=== PATIENT | female | born 1990 | race American Indian/Alaskan Native ===

== ENCOUNTER 2016-10-29 10:08 | Day surgery (SDC) | payer BC ==
--- NOTE | 2016-10-28 12:59 | History and Physical Report ---
History of Present Illness Date of examination: 10/26/16 Date of admission: 10/29/16 Chief complaint: irregular bleeding History of present illness: History of Present Illness: Pt with long h/o irregular bleeding that has improved since being on the depo. Previous sonogram showed a collection of fluid in the uterus. After several months on the depo the sono was repeated and collection still present. Previous EMBX had benign findings. I d/w pt repeating the embx, observation, vs hysteroscopy with D&C. She desires the hysteroscopy with D&C. All risk/benefits/ alternatives were d/w pt and questions were addressed and answered. pt was given plenty of time to answere all q Vital Signs: Patient Profile: 26 Years Old Female Height: 66 inches (167.64 cm) Weight: 114 pounds BMI: 18.40 BP sittin / 66 (left arm) Current Method of Contraception: Depo-Provera Past History : 1 Term Births: 1 Premature Births: 0 Living Children: 1 Para: 1 Mult. Births: 0 Prev : 0 Prev. attempt? 0 Aborta: 0 Elect. Ab: 0 Spont. Ab: 0 Ectopics: 0 MEDICAL ASSOCIATE History Uterine Surgery (not C/S): negative Operations: Knee Arthroscopy Hospitalizations: negative Anesthesia Complications: negative Abnormal PAP: negative Uterine Anomaly: negative CHARANJIT Exposure: negative Infertility: negative Infection History HIV Risk Eval: no Personal hx. of genital herpes: no Hx of STD: chlamydia Active Medications (reviewed today): DEPO-PROVERA 150 MG/ML IM SUSP (MEDROXYPROGESTERONE ACETATE) 1 inj x every 12 weeks Current Allergies (reviewed today): No known allergies Past Medical History: Reviewed history from 07/09/2008 and no changes required: Negative Past Medical History Past Surgical History: Reviewed history from 07/07/2011 and no changes required: Knee Arthroscopy Family History Summary: Reviewed history Last on 01/22/2016 and no changes required:10/28/2016 General Comments - FH: Family History Breast Cancer- Paternal aunt Family History of Hypertension- MGM No Family History of Breast Cancer No Family History of Colon Cancer No Family History of Diabetes No Family History of Ovarvian Cancer No Family History of DVT/PE on OCP Social History: Reviewed history from 07/09/2008 and no changes required: Patient is single Past History Past Medical History: no pertinent history Past Surgical History: no surgical history MEDICAL ASSOCIATE History: abnormal PAP smear Social history: no significant social history, single Medications and Allergies Allergies Allergy/AdvReac Type Severity Reaction Status Date / Time No Known Allergies Allergy Unverified 10/23/16 15:24 Home Medications Medication Instructions Recorded Confirmed Last Taken Type No Known Home Medications [No 10/23/16 10/23/16 Unknown History Reported Home Medications] Active Meds: Active Medications Cefazolin Sodium (Ancef/Sterile Water 2 Gm/20 Ml) 2 gm in 20 mls @ 80 mls/hr IV PREOP NR PRN Reason: Protocol Stop: 10/29/16 23:59 Review of Systems All systems: negative - Physical Exam Cardiovascular: Normal S1, Normal S2 Lungs: Positive: Clear to auscultation, Normal air movement Abdomen: Positive: normal appearance, soft, normal bowel sounds. Negative: distention, tenderness, guarding Genitourinary (Female): Positive: normal external genitalia, normal perenium Extremities: Positive: normal. Negative: tenderness, edema Results All other labs normal. Assessment and Plan - Patient Problems (1) Irregular menstrual bleeding Status: Acute Plan to address problem: -fluid in the endometrium -hysteroscopy with D&C -consents signed and placed on the chart.
[~2016-10-29 10:08] MED LIST: ANCEF/STERILE WATER 2 GM/20 ML 2 GM/20 ML SYRINGE IV NR
[2016-10-29] MEDS ORDERED: TORADOL IV PRN (11:28)
[2016-10-29] MEDS ORDERED: ZOFRAN IV PRN (11:28)
[2016-10-29] MEDS ORDERED: DILAUDID IV PRN (11:28)
--- NOTE | 2016-10-29 11:29 | Anesthesia Day of Surgery ---
Anesthesia Day of Surgery - Day of Surgery Patient Examined: Yes Patient H&P Reviewed: Yes Patient is NPO: Yes
--- NOTE | 2016-10-29 11:30 | Anesthesia Consultation ---
Anesthesia Consult and Med Hx Date of service: 10/29/16 - Airway Anesthetic Teeth Evaluation: Good ROM Head & Neck: Adequate Mental/Hyoid Distance: Adequate Mallampati Class: Class II Intubation Access Assessment: Probably Good - Pulmonary Exam CTA: Yes (blbs clear) - Cardiac Exam Cardiac Exam: RRR - Pre-Operative Health Status ASA Pre-Surgery Classification: ASA1 Proposed Anesthetic Plan: General - Central Nervous System Hx Psychiatric Problems: No - Other Systems Hx Cancer: No
[2016-10-29] MEDS ORDERED: PEPCID PO NR (12:00)
[2016-10-29] MEDS ORDERED: NACL 0.9% 1000 ML 1,000 ML IV SCH ×2 (12:00)
[2016-10-29] MEDS ORDERED: VERSED IV NR (12:00)
[2016-10-29] MEDS ORDERED: DIPRIVAN 10 MG/ML IV ONE (12:54)
[2016-10-29] MEDS ORDERED: XYLOCAINE MPF 2% ONE (12:56)
[2016-10-29] MEDS ORDERED: DILAUDID ONE (12:56)
[2016-10-29] MEDS ORDERED: SILVER NITRATE TP ONE (13:05)
[2016-10-29] MEDS ORDERED: NACL 0.9% IR ONE (13:29)
[2016-10-29] MEDS ORDERED: TORADOL ONE (13:53)
[2016-10-29] MEDS ORDERED: ZOFRAN ONE (13:53)
--- NOTE | 2016-10-29 14:02 | Short Stay Summary ---
Short Stay Documentation Date of service: 10/29/16 - History H&P: dictated Past Medical History: No medical history Past Surgical History: , Other (knee sx) Social history: no significant social history, single - Allergies and Medications Current Medications: Allergies No Known Allergies Allergy (Unverified 10/23/16 15:24) Home Medications Medication Instructions Recorded Confirmed Last Taken Type Ibuprofen [Motrin 800 MG tab] 800 mg PO Q8HR PRN #30 tablet 10/29/16 Unknown Rx oxyCODONE /ACETAMINOPHEN [Percocet 1 tab PO Q4HR #30 tab 10/29/16 Unknown Rx 5/325] Active Medications Famotidine (Pepcid) 20 mg PO PREOP NR Stop: 10/29/16 23:59 Last Admin: 10/29/16 11:43 Dose: 20 mg Fentanyl (Sublimaze) 50 mcg IV Q5MIN PRN PRN Reason: Pain , Severe (7-10) Stop: 11/01/16 11:29 Hydromorphone HCl (Dilaudid) 0.25 mg IV Q10MIN PRN PRN Reason: Pain, Moderate (4-6) Stop: 11/01/16 11:29 Cefazolin Sodium (Ancef/Sterile Water 2 Gm/20 Ml) 2 gm in 20 mls @ 80 mls/hr IV PREOP NR PRN Reason: Protocol Stop: 10/29/16 23:59 Sodium Chloride (Nacl 0.9% 1000 Ml) 1,000 mls @ 100 mls/hr IV DIRECT ANA Last Admin: 10/29/16 11:43 Dose: 100 mls/hr Sodium Chloride (Nacl 0.9% 1000 Ml) 1,000 mls @ 100 mls/hr IV DIRECT ANA Midazolam HCl (Versed) 2 mg IV PREOP NR Stop: 10/29/16 23:59 - Physical exam General appearance: no acute distress Lungs: Clear to auscultation Breasts: deferred Heart: Regular rate Gastrointestinal: normal, normoactive bowel sounds Extremities: no ischemia, No edema, Full ROM - Brief post op/procedure progress note Date of procedure: 10/29/16 Pre-op diagnosis: irregular bleeding Post-op diagnosis: same Procedure: hysteroscopy with D&C Anesthesia: GETA Findings: slightly thickend endometrium of the of the left fundus. Both ostia seen no active bleeding. nulliparous cx. uterus sound to 5cm Surgeon: EMILY HARDIN Estimated blood loss: minimal Pathology: list (endometrial sample) Specimen disposition: to lab Condition: stable - Hospital course Hospital course: Patient was admitted for the above-stated procedure. Patient will recover in the PACU and will be discharged home once she has met discharge criteria - Disposition Condition at discharge: Good Disposition: DISCHARGED TO HOME OR SELFCARE - Discharge Diagnoses (1) Irregular menstrual bleeding Status: Acute Short Stay Discharge Plan Activity: no restrictions Weight Bearing Status: Weight Bear as Tolerated Diet: regular Follow up with: SVITLANA COMBS MD [Primary Care Provider] - 7 Days EMILY HARDIN MD [Staff Physician] - 7 Days Prescriptions: Ibuprofen [Motrin 800 MG tab] 800 mg PO Q8HR PRN #30 tablet PRN Reason: Pain oxyCODONE /ACETAMINOPHEN [Percocet 5/325] 1 tab PO Q4HR #30 tab
--- NOTE | 2016-10-29 14:07 | Operative Report ---
Operative Report Operative Report: Date of procedure: 10/29/2016 Pre-operative diagnosis: Irregular bleeding Persistent fluid in the endometrial cavity Post-operative diagnosis: Same Procedure name(s): Hysteroscopy Dilatation and curettage Surgeon: Dr. Narayanan Transmission Worker: Certified surgical scrub anesthesiologist assistant Anesthesia: Gen. endotracheal anesthesia EBL: Minimal Urine output: 200 mL of clear urine out at the beginning of the procedure via straight catheterization Fluids: 400 mL Findings: Normal cervix. Uterus sounded to approximately 5 cm. Slightly thickened endometrium in the left fundal region. Otherwise normal hysteroscopy. Both ostia clearly visualized. No active bleeding. Indications: Patient presented with irregular bleeding and lower pelvic pain. Sonographic findings were consistent with fluid within the endometrial cavity. Patient underwent endometrial biopsy without resolution of fluid. Decision was made at this time to proceed with hysteroscopy D&C. Procedure: Patient was taken to the operating room where she was placed under general endotracheal anesthesia. She was then prepped and draped in sterile fashion. She was placed in dorsal lithotomy position with legs in Kwan stirrups. Urine output was obtained via straight catheterization. The anterior lip of the cervix was grasped with a tenaculum and the uterus was sounded to approximately 5 cm. As at this point that the cervix was dilated to allow the passage of a true scope. Hysteroscopy was performed.. Dilatation and curettage occurred until a gritty texture was obtained on all surfaces of the uterus. Endometrial sample was removed from the uterus. Late Hemostasis was noted to be excellent. Patient was taken to the recovery room awake and in stable condition. Patient was given Ancef prior to the onset of the procedure. All laps and needle counts were correct. Patient tolerated the procedure well.
--- NOTE | 2016-10-29 14:08 | Post Anesthesia Evaluation ---
- Post Anesthesia Evaluation Patient Participated: No (resting comfortable) Airway Patent: Yes Stable Respiratory Function: Yes Nausea/Vomiting: No Temp > 96.8F: Yes Pain Manageable: Yes Adequeate Hydration: Yes Anesthesia Complications: No Block Receding Appropriately: Not Applicable Patient on Ventilator: No
[2016-10-29] MEDS: SUBLIMAZE IV PRN ×2 (14:30→14:40)
[2016-10-29 16:12] VITALS: BP 108/62
== END 2016-10-29 16:50 | disposition home or self-care (01) ==
LOC: OR 10:08
PROVIDERS: ATTEND Obstetrics & Gynecology
DX: N92.6 Irregular menstruation, unspecified (principal); Z98.890 Other specified postprocedural states; Z80.3 Family history of malignant neoplasm of breast; Z82.49 Family history of ischemic heart disease and other diseases of the circulatory system
CPT/HCPCS: 58558; 81025; 86850; 86900; 86901; 88305; A4217; J0690; J1170; J1885; J2250; J2405; J2704; J3010; J7030

== ENCOUNTER 2017-05-24 14:20 | Emergency (ER) | payer BC, MEDICAID ==
[2017-05-24 14:40] VITALS: BP 115/70
== END 2017-05-24 23:19 | disposition left against medical advice (07) ==
LOC: ED 14:20
DX: Z53.21 Procedure and treatment not carried out due to patient leaving prior to being seen by health care provider (principal)